=== PATIENT | male | born 1990 | race Caucasian/White ===

== ENCOUNTER 2016-11-10 20:00 | Emergency (ER) | payer OTHER ==
[~2016-11-10] VITALS: Ht 177.8 cm; Wt 90.7 kg
[2016-11-10 20:09] VITALS: BP 130/78
--- NOTE | 2016-11-10 20:22 | ED GI/GU/ABDOMINAL COMPLAINT ---
History of Present Illness General Chief Complaint: General Adult Stated Complaint: "HERNIA TO GROIN AREA" PAINFUL PER PT Source: patient Exam Limitations: no limitations Vital Signs & Intake/Output Vital Signs & Intake/Output Vital Signs Date Time Temp Pulse Resp B/P Pulse O2 O2 Flow FiO2 Ox Delivery Rate 11/11 2043 Room Air 11/10 2008 98.0 80 18 130/78 99 Room Air Allergies Coded Allergies: NO KNOWN ALLERGIES (03/30/11) Reconcile Medications Lisdexamfetamine Dimesylate (Vyvanse) 40 MG CAPSULE 1 CAP PO QAM ADD ( Reported) Triage Note: HERNIA ACTING UP INTERMIITEN GROIN PAIN TOLD HE HAD HERNIA ABOUT 2 MONTHS AGO Triage Nurses Notes Reviewed? yes Onset: Abrupt Duration: day(s): (2) Timing: multiple episodes today Location: left groin Radiation: no radiation Activities at Onset: none No Modifying Factors: none HPI: 26 year old male presents to the ER for chief complaint of groin pain. He is worried that there is a problem with his hernia. He was told by his primary care doctor that he probabaly has a small hernia. No abdominal pain, nausea, vomiting or constipation No fever or chills. He just wanted to make sure that everything was okay. No dysuria, frequency or penile discharge. Past History Travel History Traveled to [place] past 21 day No Medical History Any Pertinent Medical History? see below for history EENT: NONE Respiratory: asthma Gastrointestinal: NONE Hepatic: NONE Renal: NONE Musculoskeletal: NONE Psychiatric: NONE Endocrine: NONE Surgical History Surgical History: non-contributory Psychosocial History What is your primary language [place] Family History Hx Contributory? No Review of Systems Review of Systems Constitutional: Denies: chills, fever. EENTM: Reports: no symptoms. Respiratory: Denies: cough, short of breath, sputum production. Cardiovascular: Denies: chest pain, palpitations. GI: Reports: see HPI (groin pain). Denies: abdominal pain. Genitourinary: Denies: discharge, dysuria. Musculoskeletal: Denies: back pain. Skin: Reports: no symptoms. Neurological/Psychological: Reports: no symptoms. Hematologic/Endocrine: Denies: bruising, bleeding, polyuria, polydipsia. Immunologic/Allergic: Denies: splenectomy. All Other Systems: Reviewed and Negative Physical Exam Physical Exam General Appearance: well developed/nourished, alert, awake, anxious, mild distress Head: atraumatic, normal appearance Eyes: Bilateral: normal appearance, PERRL, EOMI. Ears, Nose, Throat, Mouth: hearing grossly normal, moist mucous membrane Neck: normal inspection, supple, full range of motion Respiratory: normal breath sounds, chest non-tender, no respiratory distress Cardiovascular: regular rate/rhythm Peripheral Pulses: 2+ radial (R), 2+ radial (L) Gastrointestinal: soft, non-tender Male Genitals: normal genitalia, NO VISIBLE HERNIA, EXAMINATION WNL EXCEPT FOR PROBABLE SMALL LEFT INGUINAL HERNIA DEFECT Back: normal inspection, vertebral tenderness Extremities: normal range of motion Neurologic/Psych: no motor/sensory deficits, awake, alert, oriented x 3, normal gait Skin: intact, normal color, warm/dry Core Measures ACS in differential dx? No Severe Sepsis Present: No Septic Shock Present: No Progress Differential Diagnosis: HERNIA DEFECT Plan of Care: NO PALPABLE HERNIA. PATIENT GIVEN EDUCATION REGARDING HERNIA AND SIGNS/SX WITH WHICH TO RETURN. Initial ED EKG: none Departure Departure Time of Disposition: 2045 Disposition: HOME OR SELF CARE Condition: Stable Clinical Impression Primary Impression: Left inguinal pain Referrals: DONNELL AGUIRRE,CONCHITA Pettit (PCP/Family) VIDAL AGUIRRE,BROOKE Lopez Additional Instructions: TAKE TYLENOL OR MOTRIN NEEDED FOR PAIN. FOLLOW UP WITH THE SURGEON LISTED. RETURN TO THE ER FOR ANY SWELLING, ABDOMINAL PAIN, VOMITING OR ABDOMINAL DISTENTION DISCUSSED. Departure Forms: Customer Survey General Discharge Information
[2016-11-10] MEDS ORDERED: VYVANSE40 M1 PO (20:25)
== END 2016-11-10 20:57 ==
LOC: ERH 20:00
DX: R10.32 Left lower quadrant pain (principal)